=== PATIENT | female | born 1965 | race African-American/Black ===

== ENCOUNTER → 2017-02-17 | Emergency (ER) | payer OTHER ==
[~2017-02-17] MED LIST: MAGNESIUM SULF 50% (8.12 MEQ/2 ML-1 GM VIAL) IVPB ONE; MAGNESIUM SULF 50% (8.12 MEQ/2 ML-1 GM VIAL) ONE; METOCLOPRAMIDE HCL INJECTION 10 MG/2 ML VIAL ONE
[2017-02-17 11:37] VITALS: BMI 25.2
--- NOTE | 2017-02-17 11:43 | PDOC ---
History of Present Illness - General History Source: Patient Exam Limitations: No Limitations - History of Present Illness Initial Comments: 02/17/17 16:51 The patient is a 51 year old female with no significant past medical history, presenting to the Emergency Department with a constant headache since 4:30am this morning. The patient reports that she felt fine going to bed last night, but woke up with a pressure to the top of her head. She admits that she felt dizzy, and that the pressure progressed to a constant pain throughout her head radiating to her neck. She admits that the headache is worst at the front of her head, and admits that she applied ice to her head with no relief. She states that ice usually alleviates her headaches. She reports that she has had a cold for three days, with chest congestion and nasal congestion. She admits that she still feels dizzy, and admits to staggering when trying to ambulate. She took Aspirin for the pain with little relief. She admits this is the worst headache she has ever experienced. Pt states she works 2 jobs one is nights and other i sdays and has been sleeping very little recently. The patient denies nausea, vomiting, and diarrhea. Patient denies double vision , blurry vision, or visual changes. Patient denies numbness or tingling to face , or upper or lower extremities. Patient denies fever, or chills. Patient denies head trauma, or loss of consciousness. <Shelley Garces - Last Filed: 02/17/17 16:51> <Simba Avalos - Last Filed: 02/17/17 16:53> - General Chief Complaint: Migraine Headache Stated Complaint: MIGRAINE Time Seen by Provider: 02/17/17 11:08 Past History <Shelley Garces - Last Filed: 02/17/17 16:51> - Past Medical History Anemia: No Asthma: No Cancer: No Cardiac Disorders: No CVA: No COPD: No DVT: No Dementia: No Diabetes: No Dialysis: No GI Disorders: No Disorders: No HTN: No Hypercholesterolemia: No HIV: No Kidney Stones: No Liver Disease: No Psychiatric Problems: No Seizures: No Thyroid Disease: No Lung CA: No - Surgical History Abdominal Surgery: No Appendectomy: No Cardiac Surgery: No Cholecystectomy: No Gastric Stapling: No GI Surgery: No Lung Surgery: No Neurologic Surgery: No - Psycho/Social/Smoking Cessation Hx Suicidal Ideation: No Smoking History: Never smoked Have you smoked in the past 12 months: No Hx Alcohol Use: No Drug/Substance Use Hx: No Substance Use Type: None <Simba Avalos - Last Filed: 02/17/17 16:53> - Past Medical History Allergies/Adverse Reactions: Allergies Allergy/AdvReac Type Severity Reaction Status Date / Time No Known Allergies Allergy Verified 02/17/17 11:54 Home Medications: Ambulatory Orders NK [No Known Home Medication] 02/17/17 Review of Systems - Review of Systems Able to Perform ROS?: Yes Comments:: 02/17/17 16:51 CONSTITUTIONAL: No reported: Fever, Chills, Diaphoresis, Generalized Weakness, Malaise, Loss of Appetite HEENT: Reported: + nasal congestion, + chest congestion No reported: Throat Pain, Throat Swelling, Difficulty Swallowing, Mouth Swelling , Ear Pain, Eye Pain, Visual Changes CARDIOVASCULAR: No reported: Chest Pain, Syncope, Palpitations, Irregular Heart Rate, Lightheadedness, Peripheral Edema RESPIRATORY: No reported: Cough, Shortness of Breath, SOB with Exertion, Orthopnea, Wheezing , Stridor, Hemoptysis GASTROINTESTINAL: No reported: Abdominal pain, Abdominal Distension, Nausea, Vomiting, Diarrhea, Constipation, Melena, Hematochezia GENITOURINARY: No reported: Dysuria, Frequency, Urgency, Hesitancy, Flank Pain, Genital Pain MUSCULOSKELETAL: No reported: Myalgia, Arthralgia, Joint Swelling, Back pain, Neck Pain SKIN: No reported: Rash, Itching, Pallor HEMATOLOGIC/IMMUNOLOGIC: No reported: Easy Bleeding, Easy Bruising, Lymphadenopathy, Frequent infections ENDOCRINE: No reported: Unexplained Weight Gain, Unexplained Weight Loss, Heat Intolerance , Cold Intolerance NEUROLOGIC: Reported: + headache, + dizziness No reported: Focal Weakness, Paresthesias, Seizure, Mental Status Changes, Incontinence PSYCHIATRIC: No reported: Anxiety, Depression <Shelley Garces - Last Filed: 02/17/17 16:51> *Physical Exam - Vital Signs Last Vital Signs Temp Pulse Resp BP Pulse Ox 98.0 F 82 22 129/83 98 02/17/17 11:33 02/17/17 11:33 02/17/17 11:33 02/17/17 11:33 02/17/17 11:33 - Physical Exam Comments: 02/17/17 16:51 GENERAL: The patient is awake, alert, and fully oriented, Nontoxic - in no acute distress. HEAD: Normocephalic, atraumatic. mild tenderness on percussion of frontal and maxillary sinus EYES: extraocular movements intact, sclera anicteric, conjunctiva clear, pupils 3mm and symmetrically reactive to light.. ENT: Normal voice, Moist mucous membranes. NECK: Normal range of motion, +tenderness in the trapezius b/l, negative babinskis exam. LUNGS: Breath sounds equal, clear to auscultation bilaterally. No wheezes, no rhonchi, no rales. HEART: Regular rate and rhythm, normal S1 and S2 without murmur, rub or gallop. ABDOMEN: Soft, nontender, normoactive bowel sounds. No guarding, no rebound. . No CVA tenderness EXTREMITIES: Normal range of motion, no edema. No clubbing or cyanosis. No cords, erythema, or tenderness. NEUROLOGICAL: No facial assymetry, Normal speech, normal gait, normal strength b /l, normal gait. PSYCH: Normal mood, normal affect. SKIN: Warm, Dry, normal turgor, <Shelley Garces - Last Filed: 02/17/17 16:51> - Vital Signs Last Vital Signs Temp Pulse Resp BP Pulse Ox 98.0 F 82 22 129/83 98 02/17/17 11:33 02/17/17 11:33 02/17/17 11:33 02/17/17 11:33 02/17/17 11:33 <Simba Avalos - Last Filed: 02/17/17 16:53> ED Treatment Course - LABORATORY CBC & Chemistry Diagram: 02/17/17 11:43 02/17/17 11:43 - ADDITIONAL ORDERS Additional order review: Laboratory Results 02/17/17 02/17/17 11:43 11:43 INR 1.04 Sodium 142 Potassium 4.1 Chloride 104 Carbon Dioxide 30 Anion Gap 8 BUN 12 Creatinine 0.8 Creat Clearance w eGFR > 60 Random Glucose 130 H Calcium 9.7 Total Bilirubin 0.5 AST 21 ALT 27 Alkaline Phosphatase 77 Total Protein 7.6 Albumin 4.0 02/17/17 11:43 RBC 4.72 MCV 85.3 MCHC 33.4 RDW 13.0 MPV 8.7 Neutrophils % 36.3 L Lymphocytes % 50.4 H Monocytes % 8.5 Eosinophils % 4.1 Basophils % 0.7 - RADIOLOGY Radiograph Interpretation: 02/17/17 13:[address] As reviewed by Dr. Will Ko IMPRESSION: Normal CT scan of the head. No evidence of acute intracranial pathology. - Medications Given in the ED: ED Medications Discontinued Medications Generic Name Dose Route Start Last Admin Trade Name Valarie PRN Reason Stop Dose Admin Acetaminophen 1,000 mg 02/17/17 12:15 02/17/17 12:00 Ofirmev Injection - IVPB 02/17/17 12:16 1,000 mg ONCE ONE Administration Sodium Chloride 1,000 mls @ 1,000 mls/hr 02/17/17 12:15 02/17/17 12:00 Normal Saline - IV 02/17/17 13:14 1,000 mls/hr .Q1H ONE Administration Metoclopramide HCl 10 mg 02/17/17 12:15 02/17/17 12:00 Reglan Injection - IVPUSH 02/17/17 12:16 10 mg ONCE ONE Administration <Shelley Garces - Last Filed: 02/17/17 16:51> - LABORATORY CBC & Chemistry Diagram: 02/17/17 11:43 02/17/17 11:43 - RADIOLOGY Radiology Studies Ordered: Category Date Time Status HEAD CT WITHOUT CONTRAST [CT] Stat CT Scan 02/17/17 11:40 Ordered <Simba Avalos - Last Filed: 02/17/17 16:53> Medical Decision Making - Medical Decision Making 02/17/17 11:41 51y F no significant pmhx presents with complaint of headache, started off at the top of her head at 4:30 this morning fairly suddenly and now radiates down to her frontal scalp and back to her neck. w/o any vision changes, nubmness/ tingling/weakness. consider possible migraine vs sinusitis vs sah will ck ct head will ck labs will give reglan/tylenol, fluids will reassess A portion of this note was documented by scribe services under my direction. I have reviewed the details of the note, within reason, and agree with the documentation with the following case summary and management plan written by me 02/17/17 14:40 pts lbas reviewed unremarkable pts ct hed neg for any acute pathology pt feels substantially better, but still hasmild headache. pt looksmore comfortable i discussed obtaining an LP with the patient for definitive rule out of SAH, however the pt declined. will give the pt some magnesium and will reassess the pt and discuss possible LP with the pt. 02/17/17 16:46 pt feeling improved currently her neck is nontender, she has a negative babinsky and has a normal exam and is well appearing. i approached the possibility of obtaining an LP with th hannah but she again declined. I discussed although her CT is negative, in situations of a sentinal bleed of an aneurysm, a CT is not sufficient to rule out a small SAH and LP is standard of crae. The pt states she is an [employer] and after discussing the pathophysiology of the disease, i feel the pt understandss the risk of not performing the LP includes miseed/delayed diagnosis of SAH and risk of . She states she still does not want the LP. pt signed a consent to decline treatment. will have the pt fu with her PMD return precautions were discussed that she can return at any time to complete her workup with an LP to r/o SAH. <Simba Avalos - Last Filed: 02/17/17 16:53> *DC/Admit/Observation/Transfer - Attestations Scribe Attestion: 02/17/17 16:52 Documentation prepared by Shelley Garces, acting as medical records field technician for Simba Avalos MD. <Shelley Garces - Last Filed: 02/17/17 16:51> - Discharge Dispostion Admit: No <Simba Avalos - Last Filed: 02/17/17 16:53> Diagnosis at time of Disposition: Severe headache - Discharge Dispostion Disposition: HOME Condition at time of disposition: Stable - Referrals Referrals: Vasu Luque MD [Primary Care Provider] - - Patient Instructions Printed Discharge Instructions: DI for Headache Additional Instructions: You declined obtaining a lumbar puncture to rule out an intracranial hemorrhage. We are not able to absolutely rule out a subarachnoid hemorrhage which may be the cause of your headache. Return at any time to complete your workup, especially if you have any headache, or other concerns. Please follow up with your primary care doctor.
[2017-02-17] MEDS: METOCLOPRAMIDE HCL INJECTION 10 MG/2 ML VIAL IVPUSH ONE ×2 (12:00→15:21)
[2017-02-17] MEDS: ACETAMINOPHEN 1000 MG/100 ML VIAL (NON FORMULARY) IVPB ONE ×2 (12:00→15:22)
[2017-02-17] MEDS: SODIUM CHLORIDE 1,000 ML IV ONE ×2 (12:00→15:22)
[2017-02-17 12:09] LABS: BASOPHIL 0.7 % (0-2.0); EOSINOPHIL 4.1 % (0-4.5); MCH 28.5 pg (25.7-33.7); MCHC 33.4 g/dl (32.0-36.0); MEAN CELL VOLUME 85.3 fl (80-96); MEAN PLT VOLUME 8.7 fl (7.5-11.1); NEUTROPHILS 36.3 % (42.8-82.8); PLATELET COUNT 241 K/MM3 (134-434); WHITE BLOOD COUNT 4.6 K/mm3 (4.0-10.0)
[2017-02-17 12:34] LABS: ANION GAP 8 (8-16); BILIRUBIN,TOTAL 0.5 mg/dL (0.2-1.0); CALCIUM 9.7 mg/dL (8.5-10.1); CO2 30 mmol/L (21-32); COCKROFT - GAULT 92.905; CREATININE 0.8 mg/dL (0.55-1.02); GLUCOSE,RANDOM 130 mg/dL (74-106); SGOT/AST 21 U/L (15-37); SGPT/ALT 27 U/L (12-78); TOT PROT 7.6 g/dl (6.4-8.2)
[2017-02-17 12:35] LABS: ALK PHOS 77 U/L (45-117); INR 1.04 (0.82-1.09); PROTHROMBIN TIME (PATIENT) 11.5 SEC (9.98-11.88)
[2017-02-17 15:26] VITALS: BP 112/70; PULSE 60; TEMP 98.1
== END | disposition home or self-care (01) ==
LOC: JER 11:03
PROC: 3E033NZ Introduction of Analgesics, Hypnotics, Sedatives into Peripheral Vein, Percutaneous Approach (ICD-10-PCS; principal; 2017-02-17)
PROC: 3E033GC Introduction of Other Therapeutic Substance into Peripheral Vein, Percutaneous Approach (ICD-10-PCS; 2017-02-17)
PROC: 3E0337Z Introduction of Electrolytic and Water Balance Substance into Peripheral Vein, Percutaneous Approach (ICD-10-PCS; 2017-02-17)
DX: R51 Headache (principal)
CPT/HCPCS: 36415; 70450-TC; 80053; 85025; 85610; 99282-25

== ENCOUNTER 2021-09-08 11:56 | Emergency (ER) | payer OTHER ==
[2021-09-08 12:09] VITALS: BP 164/88; PULSE 73; TEMP 97.4; BMI 27.1
[2021-09-08] MEDS ORDERED: KETOROLAC TROMETHAMINE 60 MG/2 ML VIAL IM ONE (14:12)
[2021-09-08] MEDS ORDERED: KETOROLAC TROMETHAMINE 60 MG/2 ML VIAL ONE (14:22)
== END 2021-09-08 15:00 | disposition home or self-care (01) ==
LOC: JERFT 11:56
PROC: 3E023GC Introduction of Other Therapeutic Substance into Muscle, Percutaneous Approach (ICD-10-PCS; principal; 2021-09-08)
DX: S39.012A Strain of muscle, fascia and tendon of lower back, initial encounter (principal); S63.602A Unspecified sprain of left thumb, initial encounter; S83.91XA Sprain of unspecified site of right knee, initial encounter; W01.0XXA Fall on same level from slipping, tripping and stumbling without subsequent striking against object, initial encounter
CPT/HCPCS: 73562-TC-RT-FY; 99284-25

== ENCOUNTER 2024-10-28 14:07 | Emergency (ER) | payer OTHER, BC ==
[2024-10-28 14:12] VITALS: BP 148/97; PULSE 85; RESP 18; TEMP 100; BMI 25.2
[2024-10-28] MEDS ORDERED: KETOROLAC TROMETHAMINE 30 MG/1 ML VIAL ONE (15:27)
[2024-10-28] MEDS ORDERED: PSEUDOEPHEDRINE HCL 60 MG TABLET ONE (15:30)
[2024-10-28] MEDS: KETOROLAC TROMETHAMINE 30 MG/1 ML VIAL IM ONE (15:35)
[2024-10-28] MEDS: PSEUDOEPHEDRINE HCL 30 MG TABLET PO ONE (15:35)
[2024-10-28] MEDS: SODIUM CHLORIDE FOR INHALATION 3 ML VIAL.NEB IH ONE (15:36)
== END 2024-10-28 16:19 | disposition home or self-care (01) ==
LOC: JER 14:07 → JERFT 14:07
PROC: 3E0233Z Introduction of Anti-inflammatory into Muscle, Percutaneous Approach (ICD-10-PCS; principal; 2024-10-28)
DX: J10.1 Influenza due to other identified influenza virus with other respiratory manifestations (principal); R09.81 Nasal congestion; M79.10 Myalgia, unspecified site; R05.9 Cough, unspecified; Z20.822 Contact with and (suspected) exposure to COVID-19
CPT/HCPCS: 0241U-QW; 99284-25